=== PATIENT | male | born 1955 | race Caucasian/White ===

== ENCOUNTER 2017-01-06 16:35 | Observation (INO) | payer BC ==
[2017-01-06] MEDS ORDERED: NS 1,000 ML IV ONE (16:40)
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
[2017-01-06 16:48] VITALS: TEMP 98.4
[2017-01-06 17:46] LABS: RED BLOOD CELL COUNT 5.33 10^6/uL (4.40-6.38)
[2017-01-06 17:47] LABS: % IMMATURE GRANULYOCYTES 0.3 % (0.0-1.1); ABSOLUTE IMMATURE GRANULOCYTES 0.04 10^3/uL (0.00-0.10); ADD DIFF? NO; ADD MORPH? NO; ADD SCAN? NO; ATYPICAL LYMPHOCYTE FLAG 0 (0-99); FRAGMENT RBC FLAG 0 (0-99); HEMATOCRIT 44.6 % (40.0-51.0); HEMOGLOBIN 14.5 g/dL (13.7-17.5); LEFT SHIFT FLG 0 (0-99); LIPEMIA HEMOLYSIS FLAG 80 (0-99); MEAN CELL HEMOGLOBIN 27.2 pg (27.9-34.1); MEAN CELL HEMOGLOBIN CONCENTR. 32.5 g/dL (32.4-36.7); MEAN CELL VOLUME 83.7 fL (81.5-99.8); MEAN PLATELET VOLUME 9.7 fL (8.7-11.7); PLATELET CLUMPS FLAG 10 (0-99); PLATELET COUNT 210 10^3/uL (150-400); RED CELL DISTRIBUTION WIDTH 13.2 % (11.5-15.2)
[2017-01-06] MEDS ORDERED: ONDANSETRON DISINTEGRATING 4 MG TAB PO PRN (17:50)
[2017-01-06] MEDS ORDERED: ACETAMINOPHEN 325 MG TAB PO PRN (17:50)
[2017-01-06 17:58] LABS: APTT 23.5 SEC (23.0-38.0); INR 1.04 (0.83-1.16); PROTIME(PATIENT) 13.5 SEC (12.0-15.0)
[2017-01-06 18:07] LABS: ANION GAP 11 mEq/L (8-16); CALCIUM 8.9 mg/dL (8.5-10.4); CARBON DIOXIDE 23 mEq/l (22-31); CHLORIDE 103 mEq/L (97-110); CREATININE 1.1 mg/dL (0.7-1.3); GLOMERULAR FILTRATION RATE > 60; GLUCOSE 96 mg/dL (70-100); POTASSIUM 3.9 mEq/L (3.5-5.2); SODIUM 137 mEq/L (134-144)
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
[2017-01-06] MEDS ORDERED: IOPAMIDOL (ISOVUE-300) 100 ML BTL ONE (18:22)
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
--- NOTE | 2017-01-06 23:48 | SOAPPROG ---
Downtime Inpatient MD Late Entry SOAP Note: repeat CT shows stable bleed /left temporal contusion/SAH and SDH unchanged his memory is returning slowly and he reports a mild headache. Additional findings on CT discussed including possible hepatic mass/outpatient MRI recommended-discussed with Fritz and his Mahamed Pierre MD, FACS
[2017-01-07 04:10] VITALS: BP 158/89
[2017-01-07 04:11] VITALS: PULSE 64; RESP 16; O2SAT 97
[2017-01-07] MEDS ORDERED: ATORVASTATIN CALCIUM 20 MG TAB PO SCH (09:00)
[2017-01-07] MEDS ORDERED: OLMESARTAN MEDOXOMIL 20 MG TAB PO SCH (09:00)
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
--- NOTE | 2017-01-07 12:06 | ASDISCHSUM ---
Discharge Information Plan Status:Home with No Needs Medically Cleared to Leave: Discharge Date:01/07/2017 10:38 AM CM D/C Disposition:Home, Routine, Self-Care ADT D/C Disposition:Home, Routine, Self-Care Projected Discharge Date:01/07/2017 10:38 AM Transportation at D/C: Discharge Delay Reason: Follow-Up Date:01/07/2017 10:38 AM Discharge Slot: Final Diagnosis: Placement Information Patient Contact Information Contact Name:KELLEY Relationship: Address:[address] [place] [address] Work Phone: City:[place] Alternate Phone: [facility]/Zip Code:[place] [address] Email: Financial Information Financial Class:HMO and PPO Plans Primary Plan Desc[facility] Primary Plan Number:[id number] Secondary Plan Desc: Secondary Plan Number: Assessment Information Intervention Information
== END 2017-01-07 10:38 | disposition home or self-care (01) ==
LOC: F2N 19:56
PROVIDERS: ADMIT Surgery; ATTEND Surgery
DX: S06.5X0A Traumatic subdural hemorrhage without loss of consciousness, initial encounter (principal); S70.01XA Contusion of right hip, initial encounter; S00.31XA Abrasion of nose, initial encounter; Y93.55 Activity, bike riding; V19.3XXA Pedal cyclist (driver) (passenger) injured in unspecified nontraffic accident, initial encounter; Y92.821 Forest as the place of occurrence of the external cause; K76.9 Liver disease, unspecified; E78.5 Hyperlipidemia, unspecified; I10 Essential (primary) hypertension; M50.321 Other cervical disc degeneration at C4-C5 level; M50.322 Other cervical disc degeneration at C5-C6 level; M50.323 Other cervical disc degeneration at C6-C7 level
CPT/HCPCS: 70450; 71260; 72125; 72129; 72132; 74177; 92523; 97161; G0378; G0390; Q9967

== ENCOUNTER 2017-01-10 12:53 | Emergency (ER) | payer BC ==
[2017-01-10 13:01] VITALS: TEMP 97.5; O2SAT 95
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
[2017-01-10 14:14] VITALS: BP 148/90; PULSE 58; RESP 18
== END 2017-01-10 14:14 | disposition home or self-care (01) ==
DX: S09.90XA Unspecified injury of head, initial encounter (principal); F07.81 Postconcussional syndrome; I10 Essential (primary) hypertension; V19.6 Unspecified pedal cyclist injured in collision with other and unspecified motor vehicles in traffic accident